=== PATIENT | male | born 1955 | race Asian ===

== ENCOUNTER 2017-02-06 11:13 | Day surgery (SDC) | payer OTHER ==
[~2017-02-06] VITALS: Ht 172.7 cm; Wt 81.5 kg
[2017-02-06] MEDS ORDERED: HTN MEDICATION (11:44)
[2017-02-06 11:46] VITALS: Ht 172.7 cm; Wt 81.5 kg
[2017-02-06 13:06] VITALS: BP 129/83; PULSE 63; RESP 16
[2017-02-06] MEDS ORDERED: FENTAnyl 50 MCG/ML VIAL ONE (13:54)
[2017-02-06] MEDS ORDERED: MIDAZOLAM 1 MG/ML 2 ML INJ ONE ×2 (13:54)
[2017-02-06 14:05] VITALS: BP 144/90; RESP 20
--- NOTE | 2017-02-06 14:29 | GILP ---
DATE OF PROCEDURE: PREOPERATIVE DIAGNOSIS: Iron deficiency anemia. PROCEDURE DONE: Colonoscopy and biopsy. POSTOPERATIVE DIAGNOSES: A 3-mm polyp in the sigmoid colon, removed by cold biopsy polypectomy. Oth betty an unremarkable study. DESCRIPTION OF PROCEDURE: The patient was put in the left lateral decubitus after obtaining informe d consent, was sedated, monitored on oximetry, EKG, and blood pressure. He received 3 mg of IV Versed, 75 mcg of fentanyl. Very carefully I advanced an Olympus video regul ar video colonoscope all the way to the cecum. The ileocecal valve and appendiceal opening were joanne ntified. The cecum, ascending colon, transverse colon, descending colon, and sigmoid colon were tho roughly examined. In the sigmoid colon a 3-mm flat polyp was noted. This was photographed and biop sies were done, with cold biopsy forceps, a total polypectomy was done. The scope was withdrawn slow ly. The rectum was examined, including by retroflexion, and it was essentially negative for any robert or findings. Postop rectal exam was also normal. Postoperatively the patient had no complications. FINAL IMPRESSION: A 3-mm polyp in the sigmoid colon, otherwise unremarkable. Plan will be to await for the biopsy report and follow up and repeat a colonoscopy in 3 to 5 years. Dictated By: BELLA CADENA Conf#: [id number] DID#: [id number] CC: Rolando Whelan MD;*End*
== END 2017-02-06 15:42 | disposition home or self-care (01) ==
LOC: GIL 11:13
PROVIDERS: ATTEND Internal Medicine
DX: D12.5 Benign neoplasm of sigmoid colon (principal); D50.9 Iron deficiency anemia, unspecified
CPT/HCPCS: 45380; 88305; J2250; J3010

== ENCOUNTER 2018-01-20 12:11 | Day surgery (SDC) | END 2018-01-20 17:15 | disposition home or self-care (01) ==